=== PATIENT | female | born 1995 | race American Indian/Alaskan Native ===

== ENCOUNTER 2016-08-27 12:33 | Outpatient (CLI) | payer MEDICAID ==
[2016-08-27 13:01] LABS: Hematocrit 40.8 % (30.3-42.9); Hemoglobin 13.4 gm/dl (10.1-14.3); Mean Corpuscular HGB Conc 33 % (30-34); Mean Corpuscular Hemoglobin 29 pg (28-32); Mean Corpuscular Volume 87 fl (79-97); Platelet Count 242 K/mm3 (140-440); Red Blood Count 4.71 M/mm3 (3.65-5.03); Red Cell Distribution Width 12.5 % (13.2-15.2); White Blood Count 10.3 K/mm3 (4.5-11.0)
[2016-08-27 13:34] LABS: Alanine Aminotransferase 12 units/L (7-56); Albumin 4.5 g/dL (3.9-5); Albumin/Globulin Ratio 1.2 %; Alkaline Phosphatase 93 units/L (35-129); Anion Gap 23 mmol/L; Bilirubin,Total 0.4 mg/dL (0.1-1.2); Blood Urea Nitrogen 16 mg/dL (7-17); Calcium 9.8 mg/dL (8.4-10.2); Carbon Dioxide 21 mmol/L (22-30); Chloride 94.1 mmol/L (98-107); Glucose 355 mg/dL (65-100); Potassium 4.1 mmol/L (3.6-5.0); Sodium 134 mmol/L (137-145); Total Protein 8.2 g/dL (6.3-8.2)
[2016-08-27 13:44] LABS: Cholesterol 238 mg/dL (50-199); HDL Cholesterol 38 mg/dL (40-59); LDL Cholesterol,Direct 157 mg/dL (50-130); Triglycerides 219 mg/dL (2-149)
== END 2016-08-27 12:34 | disposition home or self-care (01) ==
LOC: LAB 12:33
PROVIDERS: ATTEND Specialist
DX: E11.65 Type 2 diabetes mellitus with hyperglycemia (principal)
CPT/HCPCS: 36415; 80053; 80061; 82043; 83036; 85027

== ENCOUNTER 2020-05-06 13:20 | Emergency (ER) | payer MEDICAID ==
--- NOTE | 2020-05-06 14:01 | Emergency Department Report ---
Blank Doc - Documentation Documentation: 24-year-old female 16 week with left sided chest pain, n/v, and left sided abdominal pain. denies any vaginal bleedig. This initial assessment/diagnostic orders/clinical plan/treatment(s) is/are subject to change based on patient's health status, clinical progression and re- assessment by fellow clinical providers in the ED. Further treatment and workup at subsequent clinical providers discretion. Patient/guardians urged not to elope from the ED as their condition may be serious if not clinically assessed and managed. Initial orders include: 1- Patient sent to [facility] for further evaluation and treatment 2- cardiac workup 3- US OB
[2020-05-06 15:03] LABS: Bilirubin,Urine NEG (Negative); Blood,Urine NEG (Negative); Color,Urine Yellow (Yellow); Protein,Urine <15 mg/dL mg/dL (Negative)
[2020-05-06 15:53] LABS: Basophils % (Auto) 0.4 % (0.0-1.8); Eosinophils % (Auto) 0.5 % (0.0-4.3); Hematocrit 36.8 % (30.3-42.9); Hemoglobin 12.3 gm/dl (10.1-14.3); Lymphocytes % (Auto) 18.7 % (13.4-35.0); Mean Corpuscular HGB Conc 33 % (30-34); Mean Corpuscular Volume 92 fl (79-97); Monocytes # (Auto) 0.5 K/mm3 (0.0-0.8); Platelet Count 230 K/mm3 (140-440); Red Cell Distribution Width 13.1 % (13.2-15.2)
[2020-05-06 16:02] LABS: INR 1.02 (0.87-1.13)
[2020-05-06 16:03] LABS: Partial Thromboplastin Time 24.1 Sec. (24.2-36.6)
[2020-05-06 16:07] LABS: Alanine Aminotransferase 41 units/L (7-56); Albumin 3.8 g/dL (3.9-5); Blood Urea Nitrogen 7 mg/dL (7-17); Calcium 9.5 mg/dL (8.4-10.2); Hemolysis Index 6
[2020-05-06 16:19] LABS: BUN/Creatinine Ratio 14
[2020-05-06] MEDS ORDERED: ACETAMINOPHEN 500 MG TAB PO ONE (16:47)
--- NOTE | 2020-05-06 16:51 | Emergency Department Report ---
ED Abdominal Pain HPI - General Chief Complaint: Abdominal Pain Stated Complaint: CHEST/LT SIDE PAIN/PREG 4MONTHS Time Seen by Provider: 05/06/20 14:01 Source: patient Mode of arrival: Ambulatory Limitations: No Limitations - History of Present Illness Initial Comments: The patient was evaluated in the emergency department for symptoms described in the history of present illness. He/she was evaluated in the context of the global COVID-19 pandemic, which necessitated consideration that the patient might be at risk for infection with the virus that causes COVID-19. Institutional protocols and algorithms that pertain to the evaluation of patients at risk for COVID-19 are in a state of rapid change based on information released by regulatory bodies including the CDC and federal and state organizations. These policies and algorithms were followed during the patient's care in the emergency department. Please note that these policies, procedures and recommendations changed on a rapid basis. 24-year-old -Trist[place] female who is 1, last menstrual period 01/31/2020 reports that she is approximately 16 weeks presents to the emergency room for suprapubic abdominal pain and left side abdominal pain. Patient admits to nausea vomiting and constipation. Patient has a past medical history of diabetes and is currently on insulin. She is followed by [facility] and as well as [place] last ultrasound 1 month ago. Patient denies any dysuria denies any vaginal bleeding or vaginal discharge. Patient reports that the pain is sharp persistent and she rated at 7-8 out of 10. Patient denies any complications at this time. Patient reports that she has been evaluated by her [facility]CONOMICS EXT[employer]ION WORKER for these complaints and they wanted to admit her at that time she was not able to stay in the hospital. MD Complaint: abdominal pain, flank pain Location: LLQ, suprapubic Severity scale (0 -10): 8 Quality: sharp Consistency: constant Improves With: nothing Worsens With: nothing - Related Data Previous Rx's Medication Instructions Recorded Last Taken Type Sulfamethoxazole/Trimethoprim 1 each PO BID #20 tablet 01/13/20 Unknown Rx [Bactrim DS TAB] cephALEXin [Keflex] 500 mg PO Q6HR #40 capsule 01/13/20 Unknown Rx Allergies Allergy/AdvReac Type Severity Reaction Status Date / Time No Known Allergies Allergy Unverified 01/13/20 10:24 ED Review of Systems ROS: Stated complaint: CHEST/LT SIDE PAIN/PREG 4MONTHS Other details as noted in HPI ED Past Medical Hx - Past Medical History Previous Medical History?: Yes Hx Diabetes: Yes - Surgical History Additional Surgical History: Left knee - Social History Smoking Status: Never Smoker Substance Use Type: None - Medications Home Medications: Home Medications Medication Instructions Recorded Confirmed Last Taken Type Sulfamethoxazole/Trimethoprim 1 each PO BID #20 tablet 01/13/20 Unknown Rx [Bactrim DS TAB] cephALEXin [Keflex] 500 mg PO Q6HR #40 capsule 01/13/20 Unknown Rx ED Physical Exam - General Limitations: No Limitations General appearance: alert, in no apparent distress, obese - Head Head exam: Present: atraumatic, normocephalic - Eye Eye exam: Present: normal appearance - ENT ENT exam: Present: mucous membranes moist - Neck Neck exam: Present: normal inspection, full ROM - Respiratory Respiratory exam: Present: normal lung sounds bilaterally. Absent: respiratory distress - Cardiovascular Cardiovascular Exam: Present: regular rate, normal rhythm. Absent: systolic murmur, diastolic murmur, rubs, gallop - GI/Abdominal GI/Abdominal exam: Present: soft, tenderness (Suprapubic and left lower quadrant). Absent: distended - Extremities Exam Extremities exam: Present: normal inspection, full ROM - Back Exam Back exam: Present: normal inspection - Neurological Exam Neurological exam: Present: alert, oriented X3, normal gait - Psychiatric Psychiatric exam: Present: normal affect, normal mood - Skin Skin exam: Present: warm, dry, intact, normal color. Absent: rash ED Course Vital Signs 05/06/20 05/06/20 14:00 18:01 Temperature 97.9 F Pulse Rate 102 H 84 Respiratory 20 16 Rate Blood Pressure 140/95 Blood Pressure 123/79 [Right] O2 Sat by Pulse 100 100 Oximetry - Consultations Consultation #1: 05/06/20 17:[address] Saint Nguyen she recommends the patient to call in the morning to make an appointment with her provider. ED Medical Decision Making - Lab Data Result diagrams: 05/06/20 15:25 05/06/20 15:25 - Radiology Data Radiology results: report reviewed [facility] [address] [place] [address] Ultrasound Report Signed Patient: NISH LAGUNA MR#: [id number] : 1995 Acct:[id number] Age/Sex: 24 / F ADM Date: 05/06/20 Loc: ED Attending Dr: Ordering Physician: AALIYAH MAHAN NP Date of Service: 05/06/20 Procedure(s): US OB >= 14 weeks Fetus Accession Number(s): [id number] cc: AALIYAH MAHAN NP ULTRASOUND OBSTETRIC INDICATION / CLINICAL INFORMATION: left pelvic pain. TECHNIQUE: Transabdominal. COMPARISON: None available. FINDINGS: There is a single intrauterine . Biparietal Diameter = 3.7 cm = 17.3 weeks.days Head Circumference = 14.2 cm = 17.3 weeks.days Abdominal Circumference = 11.8 cm = 17.4 weeks.days Femur Length = 2.1 cm = 16.3 weeks.days Average Ultrasound Age (AUA) = 17.2 weeks.days Heart Rate: 143 beats per minute. Estimated Weight in grams (if calculated): 179 Position: transverse. Cervix: closed. Length in cm (if measured): 3.9 Placenta: Circumvallate placenta with amniotic sheet, anterior, grade 0 and free of the os. Amniotic Fluid Volume: Subjectively normal Maternal Adnexa: No significant abnormality. IMPRESSION: 1. Single, living intrauterine with estimated sonographic age of 17.2 weeks.days 2. Circumvallate placenta noted with amniotic sheet present. Signer Name: Ravindra Morejon MD Signed: 05/06/2020 4:49 PM Workstation Name: [id number] Transcribed By: LENNIE Dictated By: Ravindra Morejon MD Electronically Authenticated By: Ravindra Morejon MD Signed Date/Time: 05/06/201648 DD/ 46 TD/TT: - Medical Decision Making 24-year-old -Trist[place] female who is 1, last menstrual period 01/31/2020 reports that she is approximately 16 weeks presents to the emergency room for suprapubic abdominal pain and left side abdominal pain. Patient admits to nausea vomiting and constipation. Patient has a past medical history of diabetes and is currently on insulin. She is followed by [facility] [place] [facility] and as well as [place] last ultrasound 1 month ago. Patient denies any dysuria denies any vaginal bleeding or vaginal discharge. Patient reports that the pain is sharp persistent and she rated at 7-8 out of 10. Patient denies any complications at this time. Patient reports that she has been evaluated by her [facility] [employer]CONOMICS EXTENSION WORKER for these complaints and they wanted to admit her at that time she was not able to stay in the hospital. Ultrasound shows a circumvallate placenta with amniotic sheet present. Urine has greater than 500 glucose patient has mild elevated blood pressure 140/95. Critical care attestation.: If time is entered above; I have spent that time in minutes in the direct care of this critically ill patient, excluding procedure time. ED Disposition Clinical Impression: Pelvic pain Disposition: DC-01 TO HOME OR SELFCARE Is pt being admited?: No Does the pt Need Aspirin: No Condition: Stable Instructions: Abdominal Pain (ED) Additional Instructions: Spoke to the provider at [facility] she recommends that you call in the morning to make an appointment to be seen by your provider at the office. You can take Tylenol for pain management. Increase your water intake. Referrals: PRIMARY CARE, [Primary Care Provider] - 3-5 Days [facility] [Provider Group] - 3-5 Days Forms: Work/School Release Form(ED)
--- NOTE | 2020-05-06 16:54 | Ultrasound Report ---
ULTRASOUND OBSTETRIC INDICATION / CLINICAL INFORMATION: left pelvic pain. TECHNIQUE: Transabdominal. COMPARISON: None available. FINDINGS: There is a single intrauterine . Biparietal Diameter = 3.7 cm = 17.3 weeks.days Head Circumference = 14.2 cm = 17.3 weeks.days Abdominal Circumference = 11.8 cm = 17.4 weeks.days Femur Length = 2.1 cm = 16.3 weeks.days Average Ultrasound Age (AUA) = 17.2 weeks.days Heart Rate: 143 beats per minute. Estimated Weight in grams (if calculated): 179 Position: transverse. Cervix: closed. Length in cm (if measured): 3.9 Placenta: Circumvallate placenta with amniotic sheet, anterior, grade 0 and free of the os. Amniotic Fluid Volume: Subjectively normal Maternal Adnexa: No significant abnormality. IMPRESSION: 1. Single, living intrauterine with estimated sonographic age of 17.2 weeks.days 2. Circumvallate placenta noted with amniotic sheet present. Signer Name: Ravindra Morejon MD Signed: 05/06/2020 4:49 PM Workstation Name: [id number]
[2020-05-06 18:01] VITALS: BP 123/79
== END 2020-05-06 18:14 | disposition home or self-care (01) ==
LOC: ED 13:20
DX: O26.892 Other specified pregnancy related conditions, second trimester (principal); R10.2 Pelvic and perineal pain; E11.9 Type 2 diabetes mellitus without complications; Z3A.16 16 weeks gestation of pregnancy; Z98.890 Other specified postprocedural states; Z79.899 Other long term (current) drug therapy
CPT/HCPCS: 36415; 76805; 80053; 81001; 84484; 84702; 85025; 85610; 85730

== ENCOUNTER 2020-08-31 12:14 | Outpatient (CLI) | payer MEDICAID ==
[2020-08-31] MEDS ORDERED: LACTATED RINGERS 1,000 ML IV ONE (13:49)
[2020-08-31 14:19] LABS: Bilirubin,Urine NEG (Negative); Blood,Urine NEG (Negative); Color,Urine Amber (Yellow); Mucus,Urine FEW /HPF
[2020-08-31 14:20] LABS: Bacteria,Urine 4+ /HPF (Negative)
[2020-08-31] MEDS ORDERED: ACETAMINOPHEN 500 MG TAB PO ONE (16:00)
[2020-08-31] MEDS ORDERED: TERBUTALINE 1 MG/1 ML INJ ONE (16:56)
[2020-08-31 17:00] VITALS: BP 137/88
[2020-08-31] MEDS ORDERED: TERBUTALINE 1 MG/1 ML INJ IVP ONE (17:01)
== END 2020-08-31 18:05 | disposition home or self-care (01) ==
LOC: TRG 12:14 → APU 12:15 → TRG 18:05
PROVIDERS: ATTEND Obstetrics & Gynecology
DX: O26.893 Other specified pregnancy related conditions, third trimester (principal); R10.30 Lower abdominal pain, unspecified; O47.03 False labor before 37 completed weeks of gestation, third trimester; Z3A.33 33 weeks gestation of pregnancy
CPT/HCPCS: 59025; 81001; 82962; 87086; 96361; 96365; 96375; J0690; J3105; J7120; 96360; 96372

== ENCOUNTER 2020-09-12 11:34 | Inpatient (IN) | payer MEDICAID ==
[2020-09-12] MEDS ORDERED: CALCIUM GLUCONATE 1000 MG/10 ML INJ IV NR (12:46)
[2020-09-12] MEDS ORDERED: DEXTROSE 50% IN WATER (25GM) 50 ML SYRINGE IV PRN (12:46)
[2020-09-12] MEDS ORDERED: BUTORPHANOL 2 MG/1 ML INJ IV PRN (12:46)
[2020-09-12] MEDS ORDERED: fentaNYL 100 MCG/2 ML INJ IV PRN (13:00)
[2020-09-12] MEDS ORDERED: OXYTOCIN DRIP 30 UNITS/500 ML BAG IV SCH (13:00)
[2020-09-12] MEDS ORDERED: LACTATED RINGERS 1,000 ML IV SCH (13:00)
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
[2020-09-12] MEDS ORDERED: ONDANSETRON 4 MG/2 ML INJ IV PRN (13:30)
[2020-09-12] MEDS ORDERED: MAGNESIUM SULFATE 4 GM/100 ML BAG IV SCH (13:30)
[2020-09-12] MEDS ORDERED: TERBUTALINE 1 MG/1 ML INJ SUB-Q PRN (13:30)
[2020-09-12] MEDS ORDERED: LIDOCAINE (2%) 20 MG/1 ML VIAL 20 ML MDV INFILTRATI SCH (13:30)
[2020-09-12] MEDS ORDERED: NALOXONE 0.4 MG/1 ML INJ IV PRN (13:30)
[2020-09-12] MEDS ORDERED: hydrALAZINE 20 MG/1 ML INJ IV PRN (13:30)
[2020-09-12] MEDS ORDERED: PROMETHAZINE 25 MG TAB PO PRN (13:30)
[2020-09-12] MEDS ORDERED: miSOPROStol 200 MCG TAB PR PRN (13:30)
[2020-09-12] MEDS: INSULIN REGULAR, HUMAN 100 UNITS/1 ML SUB-Q SCH (13:47)
[2020-09-12] MEDS: BETAMET ACET/BETAMET NA PH 6 MG/ML INJ 5 ML MDV IM SCH (13:48)
[2020-09-12] MEDS: LACTATED RINGERS 1,000 ML IV SCH ×2 (13:49→23:43)
[2020-09-12] MEDS ORDERED: MINERAL OIL 30 ML ORAL LIQD PO PRN (14:00)
[2020-09-12] MEDS ORDERED: DINOPROSTONE 10 MG VAG SUPP VG SCH (14:00)
[2020-09-12 14:19] LABS: Hematocrit 37.5 % (30.3-42.9); Hemoglobin 12.5 gm/dl (10.1-14.3); Mean Corpuscular HGB Conc 34 % (30-34); Mean Corpuscular Volume 91 fl (79-97); Red Blood Count 4.13 M/mm3 (3.65-5.03); Red Cell Distribution Width 14.4 % (13.2-15.2)
[2020-09-12 14:20] LABS: Platelet Count 142 K/mm3 (140-440)
[2020-09-12] MEDS: MAGNESIUM SULFATE 40GM/1000ML 40 GM/1,000 ML BAG IV SCH (14:39)
[2020-09-12 14:42] LABS: Alanine Aminotransferase 52 units/L (7-56); Albumin 3.7 g/dL (3.9-5); Blood Urea Nitrogen 8 mg/dL (7-17); Calcium 9.4 mg/dL (8.4-10.2); Hemolysis Index 3; Uric Acid 5.5 mg/dL (3.5-7.6)
[2020-09-12 14:50] LABS: BUN/Creatinine Ratio 13
--- NOTE | 2020-09-12 18:41 | Consultation ---
Consult Note - Parent Education Parent(s) demonstrated understanding of all the information:: Yes Additional Comment: Discussed the challenges and transition process for 35 week infants (including weight, respiratory status, feeding ability, POC glucoses, tempature regulation), criteria to transition to NBN, and criteria to transition into NICU care. Assessment and Plan - Assessment Gestation:: 35 Baby's gender: Male - Plan Plan: Agree with Mag & steroids Will attend delivery Please call NICU with questions
[2020-09-12] MEDS: BUTORPHANOL 2 MG/1 ML INJ IV PRN (21:26)
[2020-09-13] MEDS: BUTORPHANOL 2 MG/1 ML INJ IV PRN ×2 (00:33→02:58)
[2020-09-13] MEDS: miSOPROStol 25 MCG TAB PO SCH ×5 (01:38→11:59)
[2020-09-13] MEDS: LACTATED RINGERS 1,000 ML IV SCH ×3 (04:06→23:11)
[2020-09-13] MEDS ORDERED: NALOXONE 2 MG/2 ML INJ IV PRN (04:40)
[2020-09-13] MEDS ORDERED: ePHEDrine SULFATE 50 MG/1 ML INJ IV PRN (04:40)
--- NOTE | 2020-09-13 04:40 | Anesthesia Consultation ---
Anesthesia Consult and Med Hx Date of service: 09/13/20 - Airway Anesthetic Teeth Evaluation: Good ROM Head & Neck: Adequate Mental/Hyoid Distance: Adequate Mallampati Class: Class II Intubation Access Assessment: Probably Good - Pulmonary Exam CTA: Yes - Cardiac Exam Cardiac Exam: RRR - Pre-Operative Health Status ASA Pre-Surgery Classification: ASA3 Proposed Anesthetic Plan: Epidural - Pulmonary Hx Asthma: No - Cardiovascular System Hx Hypertension: Yes - Central Nervous System Hx Seizures: No Hx Psychiatric Problems: No - Endocrine Hx Renal Disease: No Hx Hypothyroidism: No Hx Hyperthyroidism: No - Hematic Hx Anemia: No Hx Sickle Cell Disease: No - Other Systems Hx Alcohol Use: No Hx Obesity: Yes
--- NOTE | 2020-09-13 04:44 | Progress Note ---
Labor Epidural - Labor Epidural Start Time: 04:15 Stop Time: 04:35 Performed by:: FABRICIO WHITE Procedure: Patient is requesting epidural for labor pain. H&P, and labs reviewed. Procedure explained, questions answered, consent obtained. Patient in sitting position with blood pressure cuff and pulse ox on and working. Timeout performed immediately before start of procedure. Sterile chlorahexadine 0.5% prep/drape. 5 mL 1% lidocaine skin wheal at L[3]-L[4]. 18-gauge Tuohy epidural needle advanced to [id number] with saline at 9 cm. Epidural catheter advanced to 15 cm, negative aspiration for blood and csf, negative test dose 3 ml 1.5% lidocaine with epinephrine. Epidural dexmedetomidine [30] mcg administered. Sterile steri-strips and tegaderm applied, followed by tape reinforcement. Patient tolerated procedure well. Luis Miguel HUGHES
[2020-09-13] MEDS: ePHEDrine SULFATE 50 MG/1 ML INJ IV PRN ×2 (05:12→05:30)
[2020-09-13] MEDS: fentaNYL-BUPIV 2 MCG/ML-0.125% 200 MCG/100 ML BAG EPIDURAL SCH ×2 (05:30→13:16)
[2020-09-13] MEDS: INSULIN REGULAR, HUMAN 100 UNITS/1 ML SUB-Q SCH ×2 (06:37→12:00)
--- NOTE | 2020-09-13 07:41 | Progress Note ---
Assessment and Plan A: 25 yo at 35w4d EGA Preeclampsia with severe features IDDM, unknown level of control GBS positive, membranes ruptured x9 hours Obesity Bipolar disorder, not medicated LGA fetus Resolved amniotic band P: Continue buccal Cytotec q2hr Ampicillin prophylaxis 2nd dose of Betamethasone today BG QACHS and 2 hr PP, sliding scale insulin Continue Mag sulfate for seizure prophylaxis Antihypertensive therapy as indicated Dr. Sweeney aware of patient Subjective - Subjective Date of service: 09/13/20 Principal diagnosis: IOL for preeclampsia with severe features, IDDM, IUP at 35w4d Interval history: HD2 of IOL for preeclampsia with severe features. S/p Cervidil x7 hours, removed after spontaneous rupture of membranes (clear) overnight, and one dose of rescue Hydralazine. Now on buccal Cytotec q2hr and Mag sulfate drip. She is resting comfortably now with epidural anesthesia. Patient reports: loss of fluid, no new complaints Objective - Vital Signs Vital Signs: Vital Signs - 12hr 09/12/20 09/12/20 09/12/20 19:50 20:04 20:19 Temperature Pulse Rate 92 H 90 103 H Respiratory Rate Blood Pressure 140/76 126/63 130/65 Blood Pressure [Left] O2 Sat by Pulse Oximetry 09/12/20 09/12/20 09/12/20 20:34 20:49 21:19 Temperature Pulse Rate 203 H 97 H 127 H Respiratory Rate Blood Pressure 97/49 147/67 160/102 Blood Pressure [Left] O2 Sat by Pulse Oximetry 09/12/20 09/12/20 09/12/20 21:26 21:34 22:34 Temperature Pulse Rate 100 H 87 Respiratory 20 Rate Blood Pressure 129/69 146/73 Blood Pressure [Left] O2 Sat by Pulse Oximetry 09/12/20 09/12/20 09/12/20 23:04 23:19 23:34 Temperature Pulse Rate 90 89 100 H Respiratory Rate Blood Pressure 133/63 134/71 119/61 Blood Pressure [Left] O2 Sat by Pulse Oximetry 09/12/20 09/13/20 09/13/20 23:49 00:05 00:19 Temperature Pulse Rate 93 H 114 H 90 Respiratory Rate Blood Pressure 127/74 132/87 141/75 Blood Pressure [Left] O2 Sat by Pulse Oximetry 09/13/20 09/13/20 09/13/20 00:34 00:35 00:49 Temperature 97.9 F Pulse Rate 166 H 92 H 96 H Respiratory 20 Rate Blood Pressure 162/72 132/63 Blood Pressure 162/72 [Left] O2 Sat by Pulse Oximetry 09/13/20 09/13/20 09/13/20 01:04 01:33 01:48 Temperature Pulse Rate 116 H 96 H 96 H Respiratory Rate Blood Pressure 130/70 137/70 127/65 Blood Pressure [Left] O2 Sat by Pulse Oximetry 09/13/20 09/13/20 09/13/20 02:04 02:19 02:36 Temperature Pulse Rate 96 H 95 H 107 H Respiratory Rate Blood Pressure 130/63 124/60 124/70 Blood Pressure [Left] O2 Sat by Pulse Oximetry 09/13/20 09/13/20 09/13/20 02:49 02:58 03:05 Temperature Pulse Rate 96 H 106 H Respiratory 20 Rate Blood Pressure 123/75 129/75 Blood Pressure [Left] O2 Sat by Pulse Oximetry 09/13/20 09/13/20 09/13/20 03:19 03:34 03:49 Temperature Pulse Rate 96 H 96 H 98 H Respiratory Rate Blood Pressure 131/60 125/58 131/62 Blood Pressure [Left] O2 Sat by Pulse Oximetry 09/13/20 09/13/20 09/13/20 04:04 04:19 04:22 Temperature Pulse Rate 105 H 110 H 102 H Respiratory Rate Blood Pressure 118/84 140/75 151/84 Blood Pressure [Left] O2 Sat by Pulse Oximetry 09/13/20 09/13/20 09/13/20 04:25 04:27 04:29 Temperature Pulse Rate 97 H 95 H 97 H Respiratory Rate Blood Pressure 141/73 143/72 143/73 Blood Pressure [Left] O2 Sat by Pulse Oximetry 09/13/20 09/13/20 09/13/20 04:31 04:33 04:35 Temperature Pulse Rate 101 H 88 88 Respiratory Rate Blood Pressure 127/70 120/64 120/56 Blood Pressure [Left] O2 Sat by Pulse 79 L Oximetry 09/13/20 09/13/20 09/13/20 04:36 04:37 04:40 Temperature Pulse Rate 120 H 87 87 Respiratory Rate Blood Pressure 121/59 Blood Pressure [Left] O2 Sat by Pulse 78 L 98 Oximetry 09/13/20 09/13/20 09/13/20 04:43 04:44 04:45 Temperature Pulse Rate 81 85 86 Respiratory Rate Blood Pressure 108/59 101/57 Blood Pressure [Left] O2 Sat by Pulse 93 97 Oximetry 09/13/20 09/13/20 09/13/20 04:46 04:48 04:50 Temperature Pulse Rate 83 82 107 H Respiratory Rate Blood Pressure 102/56 102/55 Blood Pressure [Left] O2 Sat by Pulse 97 Oximetry 09/13/20 09/13/20 09/13/20 04:51 04:53 04:55 Temperature Pulse Rate 107 H 94 H 90 Respiratory Rate Blood Pressure 99/51 73/43 92/55 Blood Pressure [Left] O2 Sat by Pulse 98 Oximetry 09/13/20 09/13/20 09/13/20 04:56 04:58 05:00 Temperature Pulse Rate 88 86 85 Respiratory Rate Blood Pressure 91/54 89/52 87/50 Blood Pressure [Left] O2 Sat by Pulse 96 Oximetry 09/13/20 09/13/20 09/13/20 05:02 05:04 05:05 Temperature Pulse Rate 86 82 84 Respiratory Rate Blood Pressure 86/47 86/48 Blood Pressure [Left] O2 Sat by Pulse 97 Oximetry 09/13/20 09/13/20 09/13/20 05:06 05:08 05:10 Temperature Pulse Rate 83 83 83 Respiratory Rate Blood Pressure 81/48 81/48 87/51 Blood Pressure [Left] O2 Sat by Pulse 98 Oximetry 09/13/20 09/13/20 09/13/20 05:12 05:15 05:16 Temperature Pulse Rate 98 H 94 H 92 H Respiratory Rate Blood Pressure 89/54 117/59 114/58 Blood Pressure [Left] O2 Sat by Pulse 99 Oximetry 09/13/20 09/13/20 09/13/20 05:19 05:20 05:21 Temperature Pulse Rate 97 H 96 H 94 H Respiratory Rate Blood Pressure 99/53 91/49 Blood Pressure [Left] O2 Sat by Pulse 96 Oximetry 09/13/20 09/13/20 09/13/20 05:22 05:25 05:27 Temperature Pulse Rate 93 H 88 87 Respiratory Rate Blood Pressure 96/52 87/49 102/55 Blood Pressure [Left] O2 Sat by Pulse 97 Oximetry 09/13/20 09/13/2009/13/21 05:28 05:30 05:32 Temperature Pulse Rate 90 96 H 93 H Respiratory Rate Blood Pressure 95/54 98/55 99/57 Blood Pressure [Left] O2 Sat by Pulse 98 Oximetry 09/13/20 09/13/20 09/13/20 05:34 05:35 05:36 Temperature Pulse Rate 96 H 98 H 93 H Respiratory Rate Blood Pressure 104/57 105/57 Blood Pressure [Left] O2 Sat by Pulse 98 Oximetry 09/13/20 09/13/20 09/13/20 05:39 05:40 05:42 Temperature Pulse Rate 100 H 99 H 97 H Respiratory Rate Blood Pressure 94/55 94/51 97/53 Blood Pressure [Left] O2 Sat by Pulse 97 Oximetry 09/13/20 09/13/20 09/13/20 05:44 05:45 05:46 Temperature Pulse Rate 98 H 93 H 95 H Respiratory Rate Blood Pressure 91/55 100/57 Blood Pressure [Left] O2 Sat by Pulse 99 Oximetry 09/13/20 09/13/20 09/13/20 05:47 05:48 05:50 Temperature 97.7 F Pulse Rate 99 H 98 H 93 H Respiratory 20 Rate Blood Pressure 94/55 Blood Pressure 100/57 [Left] O2 Sat by Pulse 98 98 Oximetry 09/13/20 09/13/20 09/13/20 05:55 06:00 06:04 Temperature Pulse Rate 96 H 101 H 96 H Respiratory Rate Blood Pressure 101/51 Blood Pressure [Left] O2 Sat by Pulse 97 96 Oximetry 09/13/20 09/13/20 09/13/20 06:05 06:10 06:15 Temperature Pulse Rate 99 H 100 H 98 H Respiratory Rate Blood Pressure Blood Pressure [Left] O2 Sat by Pulse 97 99 99 Oximetry 09/13/20 09/13/20 09/13/20 06:20 06:25 06:30 Temperature Pulse Rate 98 H 95 H 94 H Respiratory Rate Blood Pressure 114/59 Blood Pressure [Left] O2 Sat by Pulse 98 99 98 Oximetry 09/13/20 09/13/20 09/13/20 06:34 06:35 06:40 Temperature Pulse Rate 90 89 84 Respiratory Rate Blood Pressure 101/58 Blood Pressure [Left] O2 Sat by Pulse 99 97 Oximetry 09/13/20 09/13/20 09/13/20 06:45 06:50 06:55 Temperature Pulse Rate 89 95 H 96 H Respiratory Rate Blood Pressure 92/54 Blood Pressure [Left] O2 Sat by Pulse 99 97 96 Oximetry 09/13/20 09/13/20 09/13/20 07:00 07:05 07:10 Temperature Pulse Rate 89 94 H 95 H Respiratory Rate Blood Pressure Blood Pressure [Left] O2 Sat by Pulse 98 99 98 Oximetry 09/13/20 09/13/20 09/13/20 07:15 07:20 07:21 Temperature Pulse Rate 91 H 89 89 Respiratory Rate Blood Pressure 110/53 Blood Pressure [Left] O2 Sat by Pulse 98 98 Oximetry 09/13/20 09/13/20 09/13/20 07:25 07:30 07:35 Temperature Pulse Rate 86 94 H 106 H Respiratory Rate Blood Pressure Blood Pressure [Left] O2 Sat by Pulse 98 98 99 Oximetry - Exam FHR: category 1 Uterine Contraction Pattern: Irregular - Labs Labs: Abnormal Labs 09/12/20 09/12/20 09/12/20 14:08 14:08 17:53 Sodium 135 L Carbon Dioxide 21 L POC Glucose Hemoglobin A1c 6.7 H Magnesium 4.00 H AST 42 H Alkaline Phosphatase 136 H Albumin 3.7 L 09/13/20 09/13/20 09/13/20 00:21 01:21 06:11 Sodium Carbon Dioxide POC Glucose 141 H 183 H Hemoglobin A1c Magnesium 5.40 H AST Alkaline Phosphatase Albumin Laboratory Results - last 24 hr 09/12/20 09/12/20 09/12/20 13:37 14:08 14:08 WBC 6.9 RBC 4.13 Hgb 12.5 Hct 37.5 MCV 91 MCH 30 MCHC 34 RDW 14.4 Plt Count 142 Sodium 135 L Potassium 4.2 Chloride 100.9 Carbon Dioxide 21 L Anion Gap 17 BUN 8 Creatinine 0.6 Estimated GFR > 60 BUN/Creatinine Ratio 13 Glucose 91 POC Glucose 86 Hemoglobin A1c Uric Acid 5.5 Calcium 9.4 Magnesium Total Bilirubin 0.60 AST 42 H ALT 52 Alkaline Phosphatase 136 H Total Protein 6.9 Albumin 3.7 L Albumin/Globulin Ratio 1.2 Syphilis IgG Antibody Blood Type Antibody Screen 09/12/20 09/12/20 09/12/20 14:08 14:08 14:08 WBC RBC Hgb Hct MCV MCH MCHC RDW Plt Count Sodium Potassium Chloride Carbon Dioxide Anion Gap BUN Creatinine Estimated GFR BUN/Creatinine Ratio Glucose POC Glucose Hemoglobin A1c 6.7 H Uric Acid Calcium Magnesium Total Bilirubin AST ALT Alkaline Phosphatase Total Protein Albumin Albumin/Globulin Ratio Syphilis IgG Antibody Nonreactive Blood Type AB POSITIVE Antibody Screen Positive 09/12/20 09/13/20 09/13/20 17:53 00:21 01:21 WBC RBC Hgb Hct MCV MCH MCHC RDW Plt Count Sodium Potassium Chloride Carbon Dioxide Anion Gap BUN Creatinine Estimated GFR BUN/Creatinine Ratio Glucose POC Glucose 141 H Hemoglobin A1c Uric Acid Calcium Magnesium 4.00 H 5.40 H Total Bilirubin AST ALT Alkaline Phosphatase Total Protein Albumin Albumin/Globulin Ratio Syphilis IgG Antibody Blood Type Antibody Screen 09/13/20 06:11 WBC RBC Hgb Hct MCV MCH MCHC RDW Plt Count Sodium Potassium Chloride Carbon Dioxide Anion Gap BUN Creatinine Estimated GFR BUN/Creatinine Ratio Glucose POC Glucose 183 H Hemoglobin A1c Uric Acid Calcium Magnesium Total Bilirubin AST ALT Alkaline Phosphatase Total Protein Albumin Albumin/Globulin Ratio Syphilis IgG Antibody Blood Type Antibody Screen
[2020-09-13] MEDS ORDERED: AMPICILLIN/NS 2 GM/100 ML 2 GM/100 ML BAG IV ONE ×2 (08:00→12:00)
[2020-09-13] MEDS: BETAMET ACET/BETAMET NA PH 6 MG/ML INJ 5 ML MDV IM SCH (10:22)
[2020-09-13] MEDS: MAGNESIUM SULFATE 40GM/1000ML 40 GM/1,000 ML BAG IV SCH (11:28)
[2020-09-13] MEDS: AMPICILLIN/NS 1 GM/50 ML 1 GM/50 ML BAG IV SCH ×3 (11:59→19:32)
[2020-09-13] MEDS ORDERED: OXYTOCIN DRIP 30,000 MILLIUNITS/500 ML BAG IV ONE (13:13)
--- NOTE | 2020-09-13 13:15 | Event Note ---
Date: 09/13/20 Subtle late decelerations noted, resolved with position change. Minimal FHR variability, will decrease mag sulfate infusion to 1mg/hr. SVE /-2. Will discontinue Cytotec, initiate Pitocin titration.
[2020-09-13] MEDS ORDERED: DEXTROSE 50% IN WATER (25GM) 50 ML SYRINGE IV PRN (15:00)
[2020-09-13] MEDS: INSULIN LISPRO 100 UNIT/ML SUB-Q SCH ×2 (15:54→19:47)
--- NOTE | 2020-09-13 19:00 | Event Note ---
Date: 09/13/20 FHR difficult to trace. IUPC and FSE placed, pt tolerated well. SVE /-2. Pitocin 2x2. Continue sliding scale insulin regimen.
--- NOTE | 2020-09-13 19:28 | Event Note ---
Date: 09/13/20 EFM shows minimal variability and recurrent late decelerations. Repositioned to exaggerated left lateral with peanut ball. Explained likely need for delivery if lack of labor progression after one hour.
[2020-09-13] MEDS ORDERED: BICITRA ORAL LIQD 30ML PO ONE (19:48)
[2020-09-13] MEDS ORDERED: FAMOTIDINE 20 MG/2 ML INJ IV ONE (19:48)
[2020-09-13] MEDS ORDERED: METOCLOPRAMIDE 10 MG/2 ML INJ IV ONE (19:48)
[2020-09-13] MEDS ORDERED: LACTATED RINGERS 1,000 ML IV SCH (20:00)
--- NOTE | 2020-09-13 20:12 | Anesthesia Day of Surgery ---
Anesthesia Day of Surgery - Day of Surgery Patient Examined: Yes Patient H&P Reviewed: Yes Patient is NPO: Yes Beta Blockers: No Cardiac Clearance: No Pulmonary Clearance: No Matthew's Test: N/A
[2020-09-13] MEDS ORDERED: PROMETHAZINE 25 MG TAB PO PRN (20:31)
[2020-09-13] MEDS ORDERED: ceFAZolin/STERILE WATER 2 GM/20 ML SYRINGE IV ONE (20:35)
[2020-09-13] MEDS ORDERED: NALOXONE 0.4 MG/1 ML INJ IV PRN (20:36)
[2020-09-13] MEDS ORDERED: MORPHINE 4 MG/1 ML INJ IV PRN (20:36)
[2020-09-13] MEDS ORDERED: LANOLIN/ZINC/DIMETHICONE (LANSINOH) 7 GM TP PRN (20:36)
[2020-09-13] MEDS ORDERED: IBUPROFEN 600 MG TAB PO PRN (20:36)
[2020-09-13] MEDS ORDERED: WITCH HAZEL/ GLYCERIN PAD TP PRN (20:36)
[2020-09-13] MEDS ORDERED: KETOROLAC 30 MG/1 ML INJ IV PRN (20:36)
[2020-09-13] MEDS ORDERED: ONDANSETRON 4 MG/2 ML INJ ONE (20:42)
[2020-09-13] MEDS ORDERED: LIDOCAINE 2%/EPINEPHRINE 1:200,000 VIAL (20 ML) INFILTRATI ONE (20:42)
[2020-09-13] MEDS ORDERED: MORPHINE PF 10MG/10 ML AMPULE ONE (20:42)
[2020-09-13] MEDS ORDERED: OXYTOCIN DRIP 30 UNITS/500 ML BAG IV SCH (21:00)
[2020-09-13] MEDS ORDERED: OXYTOCIN 10 UNIT/1 ML INJ ONE (21:14)
[2020-09-13] MEDS ORDERED: WATER FOR IRRIG STERILE 1,500 ML BOTTLE IR ONE (21:25)
[2020-09-13] MEDS ORDERED: SODIUM CHLORIDE 0.9% IRR 1,500 ML BOTTLE IR ONE (21:25)
--- NOTE | 2020-09-13 21:25 | Procedure Note ---
OB Delivery Note - Delivery Date of Delivery: 09/13/20 Surgeon: GAYLE MARQUES Estimated blood loss: other (600 mL) - Section Preop diagnosis: arrest of dilation, nonreassuring FHR tracing Postop diagnosis: same section procedure: section, primary low transverse Disposition: PACU Complications: none - Infant A at 1 minute: 1 at 5 minutes: 4 Gender: Male (10-minute of 8 weeks 7 pounds 12 ounces)
--- NOTE | 2020-09-13 21:28 | Operative Report ---
Operative Report Operative Report: Date of surgery: September 13, 2020 Preoperative diagnosis: at 35+5 weeks; preeclampsia; insulin-dependent diabetes; arrest of dilatation; nonreassuring heart rate tracing Postoperative diagnosis: Same as above Procedure: Primary low transverse delivery Surgeon: Lori Alexander M.D. Anesthesia: Regional Estimated blood loss: 600 mL IV fluids: 1000 mL Urine output: 100 mL Findings: Liveborn male with Apgars of 1 4 and 8 weight 7 pounds 12 ounces Indications: 25-year-old G1, P0 at 35+5 weeks who was admitted for induction of labor secondary to severe preeclampsia and insulin-dependent diabetes. The patient's intrapartum course was complicated by arrest of dilatation at 7 cm and nonreassuring heart rate tracing. Procedure: The patient was taken to the operating room and given regional anesthesia without complication. She was prepped and draped in a normal sterile fashion. A Pfannenstiel skin incision was made down to layer the fascia which was nicked in the midline extended laterally with the Bovie cautery. The superior aspect of the rectus fascia was grasped with Antione clamps x2 and the rectus muscles off sharply. This was done in inferior fashion as well. The rectus muscle midline and peritoneum entered bluntly. An Tl retractor was then inserted. A bladder blade was placed. The vesicouterine peritoneum was then entered sharply with Metzenbaum scissors. A bladder flap was created digitally. A low transverse uterine incision was then made and extended digitally. There was clear fluid upon entry into the uterine cavity. The head was delivered through the incision with fundal pressure. The cord was clamped and cut x2 and was passed off to pediatrics. The placenta was then manually extracted. The uterus was then exteriorized and cleared of clots and debris. T he uterine incision was then closed in a running locked fashion with 0 Vicryl additional imbricating stitch was applied for 2 layer closure. The posterior cul-de-sac was then copiously irrigated. The uterus was replaced back into the abdomen and pelvis were the gutters were then irrigated. The Tl retractor was then removed. The peritoneum was then reapproximated with 3-0 Vicryl incorporating the rectus muscle. The fascia was then closed with 0 Vicryl in a running fashion. The skin was then reapproximated with 3-0 Monocryl on a Rex needle subcuticular fashion. Steri-Strips to place across the incision and a Crede procedures performed at the end of the surgery. A pressure dressing was applied to the incision. The surgery productive of a liveborn male infant with Apgars of 1 4 and 8 weight 7 pounds 12 ounces. The patient was taken to the recovery room in stable condition. All sponge laps and needle counts correct x2.
[2020-09-14] MEDS: diphenhydrAMINE 50 MG/ML VIAL IV PRN ×2 (00:15→02:44)
[2020-09-14] MEDS ORDERED: CALAMINE TP PRN (02:41)
[2020-09-14] MEDS ORDERED: ZINC OXIDE TP PRN (02:41)
[2020-09-14] MEDS: INSULIN LISPRO 100 UNIT/ML SUB-Q SCH ×5 (06:42→22:12)
[2020-09-14 07:28] LABS: Hemoglobin 9.6 gm/dl (10.1-14.3)
--- NOTE | 2020-09-14 07:28 | Progress Note ---
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 Medical history complicated by uncontrolled DM insulin requiring. Patient is unsure of insulin dosage. Will attempt sliding scale management. Receiving magnesium therapy. Patient reports: appetite normal Objective - Vital Signs Latest vital signs: Vital Signs Temp Pulse Resp BP BP Pulse Ox 09/14/20 07:18 85 97 09/14/20 07:13 83 98 09/14/20 07:09 85 214/119 09/14/20 07:08 85 97 09/14/20 07:03 94 H 99 09/14/20 06:58 94 H 100 09/14/20 06:55 46 L 77 L 09/14/20 06:53 87 97 09/14/20 06:48 85 99 09/14/20 06:44 113 H 74 L 09/14/20 06:43 107 H 97 09/14/20 06:38 92 H 97 09/14/20 06:33 85 97 09/14/20 06:28 91 H 98 09/14/20 06:23 100 H 97 09/14/20 06:18 85 99 09/14/20 06:13 97 H 97 09/14/20 06:09 81 162/91 09/14/20 06:08 84 96 09/14/20 06:03 83 96 09/14/20 06:01 86 93 09/14/20 05:58 80 95 09/14/20 05:56 82 94 09/14/20 05:53 83 96 09/14/20 05:48 83 98 09/14/20 05:47 92 H 93 09/14/20 05:43 88 98 09/14/20 05:39 88 180/101 09/14/20 05:38 86 99 09/14/20 05:33 90 99 09/14/20 05:28 99 H 98 09/14/20 05:24 88 144/72 09/14/20 05:23 91 H 99 09/14/20 05:18 81 98 03/12/21 05:13 82 98 09/14/20 05:09 96 H 195/82 92 09/14/20 05:08 104 H 95 09/14/20 05:03 86 97 09/14/20 04:58 86 98 09/14/20 04:53 96 H 99 09/14/20 04:48 100 H 95 09/14/20 04:47 103 H 93 09/14/20 04:43 85 97 09/14/20 04:39 82 164/90 09/14/20 04:38 84 98 09/14/20 04:33 94 H 98 09/14/20 04:30 98.2 F 94 H 16 90 09/14/20 04:28 91 H 159/84 98 09/14/20 04:23 82 97 09/14/20 04:18 86 96 09/14/20 04:16 96 H 93 09/14/20 04:13 88 96 09/14/20 04:09 85 166/89 09/14/20 04:08 88 97 09/14/20 04:03 89 97 09/14/20 04:01 86 94 09/14/20 03:58 84 95 09/14/20 03:53 83 97 09/14/20 03:48 84 97 09/14/20 03:43 83 96 09/14/20 03:39 80 153/88 09/14/20 03:38 79 96 09/14/20 03:33 82 98 09/14/20 03:28 99 H 98 09/14/20 03:23 81 94 09/14/20 03:18 79 96 09/14/20 03:13 84 97 09/14/20 03:09 80 144/87 09/14/20 03:08 88 96 09/14/20 03:04 82 94 09/14/20 03:03 81 95 09/14/20 02:58 84 97 09/14/20 02:53 82 98 09/14/20 02:48 85 95 09/14/20 02:43 91 H 96 09/14/20 02:41 86 151/87 09/14/20 02:39 84 180/98 09/14/20 02:38 83 97 09/14/20 02:33 85 96 09/14/20 02:28 101 H 98 09/14/20 02:23 93 H 96 09/14/20 02:18 82 97 09/14/20 02:13 86 97 09/14/20 02:09 99 H 149/79 09/14/20 02:08 83 97 09/14/20 02:03 82 96 09/14/20 01:58 84 97 09/14/20 01:53 82 98 09/14/20 01:48 103 H 96 09/14/20 01:43 105 H 99 09/14/20 01:41 85 94 09/14/20 01:39 85 138/82 09/14/20 01:38 84 96 09/14/20 01:33 82 99 09/14/20 01:28 92 H 137/80 98 09/14/20 01:23 101 H 99 09/14/20 01:18 81 96 09/14/20 01:13 84 96 09/14/20 01:09 81 180/89 09/14/20 01:08 89 97 09/14/20 01:03 84 96 09/14/20 00:58 79 97 09/14/20 00:53 102 H 100 09/14/20 00:48 90 97 09/14/20 00:43 102 H 96 09/14/20 00:39 86 137/82 09/14/20 00:38 95 H 99 09/14/20 00:33 77 98 09/14/20 00:28 89 98 09/14/20 00:23 84 100 09/14/20 00:18 90 98 09/14/20 00:13 93 H 98 09/14/20 00:09 79 157/78 09/14/20 00:08 88 99 09/14/20 00:03 89 100 09/14/20 00:01 97.6 F 15 99 09/13/20 23:58 96 H 99 09/13/20 23:53 89 97 09/13/20 23:48 91 H 98 09/13/20 23:43 78 98 09/13/20 23:39 75 135/82 09/13/20 23:38 77 99 09/13/20 23:33 78 98 09/13/20 23:28 79 99 09/13/20 23:23 76 99 09/13/20 23:18 99 H 99 09/13/20 23:13 78 100 09/13/20 23:09 78 140/67 09/13/20 23:08 80 99 09/13/20 23:03 86 99 09/13/20 22:58 89 98 09/13/20 22:35 97.6 F 80 13 131/77 99 09/13/20 22:20 76 12 131/72 99 09/13/20 22:05 82 15 124/78 99 09/13/20 21:50 80 14 127/69 99 09/13/20 21:45 84 16 134/76 100 09/13/20 21:40 81 13 133/72 99 09/13/20 21:35 97.7 F 82 14 143/79 143/79 99 09/13/20 20:10 89 99 09/13/20 20:05 91 H 99 09/13/20 20:00 95 H 99 09/13/20 19:55 94 H 99 09/13/20 19:50 95 H 99 09/13/20 19:45 95 H 100 09/13/20 19:40 90 99 09/13/20 19:35 87 100 09/13/20 19:30 98.2 F 90 16 99 09/13/20 19:25 101 H 98 09/13/20 19:20 92 H 154/78 98 09/13/20 19:15 84 100 09/13/20 19:10 85 99 09/13/20 19:06 86 159/79 09/13/20 19:05 88 100 09/13/20 19:00 92 H 99 09/13/20 18:55 90 100 09/13/20 18:50 96 H 170/83 100 09/13/20 18:45 102 H 99 09/13/20 18:40 97 H 100 09/13/20 18:36 98 H 157/85 09/13/20 18:35 107 H 100 09/13/20 18:30 91 H 100 09/13/20 18:25 97 H 99 09/13/20 18:20 90 133/67 99 09/13/20 18:15 99 H 99 09/13/20 18:10 93 H 99 09/13/20 18:05 90 116/62 98 09/13/20 18:00 90 100 09/13/20 17:55 92 H 99 09/13/20 17:50 92 H 123/61 99 09/13/20 17:45 91 H 99 09/13/20 17:40 87 100 09/13/20 17:36 107 H 138/77 09/13/20 17:35 120 H 98 09/13/20 17:30 95 H 98 09/13/20 17:25 95 H 99 09/13/20 17:20 109 H 123/81 99 09/13/20 17:15 111 H 99 09/13/20 17:10 98.9 F 103 H 18 137/79 100 09/13/20 17:06 103 H 137/79 09/13/20 17:05 96 H 100 09/13/20 17:00 92 H 100 09/13/20 16:55 98 H 100 09/13/20 16:50 96 H 148/77 100 09/13/20 16:45 93 H 100 09/13/20 16:41 96 H 147/77 09/13/20 16:40 97 H 100 09/13/20 16:35 99 H 100 09/13/20 16:30 95 H 100 09/13/20 16:25 92 H 100 09/13/20 16:20 104 H 100 09/13/20 16:15 102 H 99 09/13/20 16:10 91 H 100 09/13/20 16:05 99 H 100 09/13/20 16:00 95 H 100 09/13/20 15:55 93 H 100 09/13/20 15:51 93 H 146/80 09/13/20 15:50 101 H 100 09/13/20 15:45 102 H 100 09/13/20 15:40 99 H 100 09/13/20 15:35 94 H 145/82 100 09/13/20 15:30 109 H 100 09/13/20 15:25 104 H 99 09/13/20 15:21 98 H 135/74 09/13/20 15:20 95 H 98 09/13/20 15:15 90 98 09/13/20 15:10 90 98 09/13/20 15:05 88 128/69 98 09/13/20 15:00 90 99 09/13/20 14:55 91 H 100 09/13/20 14:51 94 H 145/83 09/13/20 14:50 99 H 99 09/13/20 14:45 93 H 99 09/13/20 14:40 92 H 99 09/13/20 14:35 89 148/73 99 09/13/20 14:30 90 99 09/13/20 14:25 93 H 99 09/13/20 14:20 99 H 99 09/13/20 14:15 92 H 99 09/13/20 14:10 108 H 98 09/13/20 14:05 90 134/71 98 09/13/20 14:00 100 H 98 09/13/20 13:55 99 H 99 09/13/20 13:51 90 144/79 09/13/20 13:50 95 H 97 09/13/20 13:45 87 98 09/13/20 13:40 88 98 09/13/20 13:36 103 H 147/84 09/13/20 13:35 99 H 99 09/13/20 13:30 92 H 100 09/13/20 13:25 96 H 99 09/13/20 13:21 98 H 131/83 09/13/20 13:20 98 H 99 09/13/20 13:15 93 H 99 09/13/20 13:10 101 H 99 09/13/20 13:07 96 H 121/76 09/13/20 13:05 97 H 99 09/13/20 13:00 92 H 98 09/13/20 12:55 102 H 98 09/13/20 12:52 96 H 150/91 09/13/20 12:50 105 H 98 09/13/20 12:45 97 H 99 09/13/20 12:40 107 H 99 09/13/20 12:36 101 H 142/98 09/13/20 12:35 101 H 98 09/13/20 12:30 99 H 99 09/13/20 12:25 101 H 100 09/13/20 12:20 109 H 99 09/13/20 12:15 107 H 100 09/13/20 12:12 88 120/65 09/13/20 12:10 92 H 99 09/13/20 12:06 90 117/66 09/13/20 12:05 91 H 100 09/13/20 12:00 97.5 F L 92 H 16 120/65 99 09/13/20 11:55 96 H 100 09/13/20 11:50 96 H 103/56 98 03/11/21 11:45 102 H 99 09/13/20 11:40 98 H 99 09/13/20 11:35 96 H 121/57 98 09/13/20 11:30 97 H 98 09/13/20 11:25 101 H 99 09/13/20 11:21 90 134/79 09/13/20 11:20 91 H 99 09/13/20 11:15 91 H 99 09/13/20 11:10 89 99 09/13/20 11:05 97 H 120/63 99 09/13/20 11:00 90 99 09/13/20 10:55 91 H 99 09/13/20 10:50 95 H 109/58 99 09/13/20 10:45 98 H 100 09/13/20 10:40 99 H 100 09/13/20 10:35 97 H 118/64 100 09/13/20 10:30 96 H 99 09/13/20 10:25 102 H 99 09/13/20 10:20 98 H 119/56 100 09/13/20 10:15 92 H 99 09/13/20 10:10 94 H 99 09/13/20 10:06 96 H 117/70 09/13/20 10:05 53 L 86 09/13/20 10:00 93 H 98 09/13/20 09:55 102 H 97 09/13/20 09:50 111 H 125/72 98 09/13/20 09:45 105 H 99 09/13/20 09:40 105 H 98 09/13/20 09:36 96 H 110/58 09/13/20 09:35 97 H 97 09/13/20 09:33 104 H 88 09/13/20 09:30 97 H 97 09/13/20 09:25 97 H 97 09/13/20 09:20 96 H 107/55 97 09/13/20 09:15 96 H 96 09/13/20 09:10 95 H 97 09/13/20 09:05 89 105/58 97 09/13/20 09:00 100 H 98 09/13/20 08:55 92 H 98 09/13/20 08:50 90 104/58 97 09/13/20 08:45 91 H 99 09/13/20 08:40 97 H 99 09/13/20 08:35 102 H 104/57 98 09/13/20 08:31 87 97/52 09/13/20 08:30 97 H 99 09/13/20 08:25 90 99 09/13/20 08:22 98 H 96/53 09/13/20 08:20 95 H 112/56 99 09/13/20 08:15 97 H 99 09/13/20 08:10 93 H 98 09/13/20 08:06 93 H 115/57 09/13/20 08:05 94 H 99 09/13/20 08:00 101 H 99 09/13/20 07:55 95 H 98 09/13/20 07:51 100 H 115/53 09/13/20 07:50 101 H 99 09/13/20 07:45 105 H 99 09/13/20 07:40 99 H 99 09/13/20 07:35 106 H 99 09/13/20 07:30 97.5 F L 97 H 16 112/56 99 09/13/20 07:25 86 98 Intake and Output 09/13/20 09/14/20 09/14/20 22:59 06:59 14:59 Intake Total 1559.400 Output Total 395 850 Balance 1164.400 -850 Intake: IV 1559.400 AMPICILLIN/NS 1 GM/50 ML 50 1 gm In 50 ml @ 100 mls/ hr IV Q4H [facility] Rx#: [id number] PITOCin/NS 30 UNIT/500ML 9.400 30,000 milliunits In 500 ml @ 2 MILLIUNITS/MIN 2 mls/hr IV [facility] Rx#:[id number] Output: Urine 395 850 Indwelling Catheter 45 850 Other: Total, Output Amount 45 300 Estimated Blood Loss 100 - Exam Abdomen: Present: normal appearance, soft Incision: Present: dressed - Labs Labs: Abnormal lab results 09/13/20 09/13/20 09/13/20 Range/Units 07:03 11:48 14:02 POC Glucose 171 H 195 H (70-105) mg/dL Magnesium 6.50 H (1.7-2.3) mg/dL 09/13/20 09/13/20 Range/Units 15:59 19:35 POC Glucose 226 H (70-105) mg/dL Magnesium 7.80 H (1.7-2.3) mg/dL
[2020-09-14] MEDS ORDERED: diphenhydrAMINE 25 MG CAP PO PRN (08:00)
[2020-09-14] MEDS ORDERED: hydrALAZINE 20 MG/1 ML INJ IV PRN (08:00)
[2020-09-14] MEDS: LACTATED RINGERS 1,000 ML IV SCH ×2 (09:22→19:00)
--- NOTE | 2020-09-14 09:38 | Post Anesthesia Evaluation ---
- Post Anesthesia Evaluation Patient Participated: Yes Airway Patent: Yes Stable Respiratory Function: Yes Nausea/Vomiting: No Temp > 96.8F: Yes Pain Manageable: Yes Adequeate Hydration: Yes Anesthesia Complications: No Block Receding Appropriately: Yes Patient on Ventilator: No
[2020-09-14] MEDS: NalbUPHINE 10 MG/1 ML INJ IV PRN ×4 (12:05→23:00)
[2020-09-14] MEDS: IBUPROFEN 800 MG TAB PO PRN (20:33)
[2020-09-14] MEDS: oxyCODONE /ACETAMINOPHEN 5-325MG TAB PO PRN (23:12)
[2020-09-15] MEDS: IBUPROFEN 800 MG TAB PO PRN ×2 (05:44→12:11)
[2020-09-15] MEDS: INSULIN LISPRO 100 UNIT/ML SUB-Q SCH ×4 (08:12→21:42)
[2020-09-15 08:42] LABS: Hematocrit 25.1 % (30.3-42.9); Hemoglobin 8.5 gm/dl (10.1-14.3)
--- NOTE | 2020-09-15 10:17 | Progress Note ---
Assessment and Plan A: POD2 s/p primary LTCS IDDM, on Insulin Preeclampsia with severe features, s/p mag sulfate Vital signs stable Acute anemia due to surgical blood loss P: Continue current care Discharge to home tomorrow Subjective - Subjective Date of service: 09/15/20 Principal diagnosis: s/p primary LTCS, pree with severe features Interval history: POD2 s/p primary LTCS Patient reports: appetite normal, voiding normally, pain well controlled, flatus, ambulating normally : in NICU (for blood glucose stabilization) Objective - Vital Signs Latest vital signs: Vital Signs Temp Pulse Resp BP BP Pulse Ox 09/15/20 09:47 162/83 09/15/20 08:10 98.4 F 98 H 18 162/83 99 09/15/20 05:44 20 09/15/20 05:42 98.1 F 88 18 136/84 99 09/14/20 23:54 98.3 F 18 134/79 99 09/14/20 23:00 94 H 99 09/14/20 22:55 96 H 97 09/14/20 22:50 87 100 09/14/20 22:45 94 H 98 09/14/20 22:40 104 H 98 09/14/20 22:35 98 H 98 09/14/20 22:32 93 H 155/84 09/14/20 22:30 92 H 99 09/14/20 22:25 97 H 98 09/14/20 22:20 86 99 09/14/20 22:15 86 98 09/14/20 22:10 89 98 09/14/20 22:05 86 140/85 99 09/14/20 22:00 86 140/85 100 09/14/20 21:55 86 99 09/14/20 21:50 84 99 09/14/20 21:45 82 99 09/14/20 21:40 87 99 09/14/20 21:35 89 99 09/14/20 21:30 84 99 09/14/20 21:25 84 99 09/14/20 21:20 84 99 09/14/20 21:18 85 139/72 09/14/20 21:15 82 99 09/14/20 21:10 82 99 09/14/20 21:05 88 97 09/14/20 21:00 83 99 03/12/21 20:55 79 99 09/14/20 20:50 79 99 09/14/20 20:45 79 98 09/14/20 20:40 83 99 09/14/20 20:35 88 99 09/14/20 20:30 92 H 98 09/14/20 20:28 75 125/64 09/14/20 20:25 84 98 09/14/20 20:20 85 100 09/14/20 20:15 83 99 09/14/20 20:10 86 100 09/14/20 20:05 96 H 100 09/14/20 20:00 98.4 F 75 18 125/64 98 09/14/20 19:55 94 H 99 09/14/20 19:50 95 H 98 09/14/20 19:45 83 97 09/14/20 19:40 96 H 98 09/14/20 19:35 87 98 09/14/20 19:30 87 98 09/14/20 19:25 83 99 09/14/20 19:20 97 H 99 09/14/20 19:15 98 H 98 09/14/20 19:10 104 H 100 09/14/20 19:05 103 H 98 09/14/20 19:01 88 142/80 09/14/20 19:00 94 H 98 09/14/20 18:55 90 148/87 97 09/14/20 18:54 87 160/92 09/14/20 18:50 88 98 09/14/20 18:45 99 H 99 09/14/20 18:42 112 H 94 09/14/20 18:40 106 H 99 09/14/20 18:35 99 H 99 09/14/20 18:30 93 H 98 09/14/20 18:25 108 H 99 09/14/20 18:20 101 H 98 09/14/20 18:15 100 H 99 09/14/20 18:10 99 H 97 09/14/20 18:05 102 H 98 09/14/20 18:00 100 H 79 L 09/14/20 17:55 79 96 09/14/20 17:50 80 97 09/14/20 17:45 82 92 09/14/20 17:44 80 123/73 86 09/14/20 17:40 83 99 09/14/20 17:35 77 98 09/14/20 17:30 82 96 0312/21 17:25 90 97 09/14/20 17:20 103 H 98 09/14/20 17:15 88 99 09/14/20 17:10 78 98 09/14/20 17:05 75 98 09/14/20 17:00 75 98 09/14/20 16:55 77 99 09/14/20 16:50 75 99 09/14/20 16:45 90 99 09/14/20 16:43 99 H 90 09/14/20 16:40 76 99 09/14/20 16:35 81 99 09/14/20 16:30 84 100 09/14/20 16:25 72 99 09/14/20 16:20 76 98 09/14/20 16:15 75 99 09/14/20 16:10 85 96 09/14/20 16:05 74 97 09/14/20 16:00 98.5 F 76 18 124/69 124/69 98 09/14/20 15:55 72 99 09/14/20 15:50 100 H 99 09/14/20 15:45 87 99 09/14/20 15:40 77 100 09/14/20 15:35 83 99 09/14/20 15:30 89 98 09/14/20 15:25 84 99 09/14/20 15:20 76 97 09/14/20 15:15 89 98 09/14/20 15:10 91 H 98 09/14/20 15:05 89 98 09/14/20 15:00 86 96 09/14/20 14:55 85 98 09/14/20 14:50 82 98 09/14/20 14:45 82 97 09/14/20 14:40 83 97 09/14/20 14:35 84 96 09/14/20 14:30 84 98 09/14/20 14:25 89 97 09/14/20 14:20 93 H 98 09/14/20 14:15 100 H 100 09/14/20 14:10 81 99 09/14/20 14:05 81 99 09/14/20 14:00 84 98 09/14/20 13:55 82 98 09/14/20 13:50 86 98 09/14/20 13:45 86 98 09/14/20 13:40 98 H 98 09/14/20 13:35 91 H 99 09/14/20 13:30 87 99 09/14/20 13:25 86 100 09/14/20 13:20 94 H 99 09/14/20 13:17 107 H 92 09/14/20 13:15 89 99 09/14/20 13:10 98 H 98 09/14/20 13:05 90 98 09/14/20 13:03 100 H 89 09/14/20 13:00 103 H 100 09/14/20 12:55 105 H 98 09/14/20 12:54 106 H 94 09/14/20 12:50 103 H 98 09/14/20 12:45 102 H 98 09/14/20 12:42 101 H 87 09/14/20 12:40 102 H 99 09/14/20 12:35 90 99 09/14/20 12:30 93 H 99 09/14/20 12:25 95 H 99 09/14/20 12:20 95 H 97 09/14/20 12:18 98.5 F 18 09/14/20 12:15 93 H 97 09/14/20 12:10 86 96 09/14/20 12:06 101 H 88 09/14/20 12:05 91 H 97 09/14/20 12:02 93 H 138/88 09/14/20 12:00 96 H 99 09/14/20 11:55 86 99 09/14/20 11:51 91 H 72 L 09/14/20 11:50 92 H 99 09/14/20 11:45 84 99 09/14/20 11:40 91 H 97 09/14/20 11:35 90 100 09/14/20 11:28 90 99 09/14/20 11:23 96 H 95 09/14/20 11:22 101 H 173/84 94 09/14/20 11:19 83 171/102 09/14/20 11:18 85 99 09/14/20 11:17 86 172/96 09/14/20 11:13 102 H 97 09/14/20 11:08 106 H 98 09/14/20 11:06 89 91 09/14/20 11:03 93 H 99 09/14/20 10:58 82 98 09/14/20 10:53 91 H 99 09/14/20 10:48 84 99 09/14/20 10:43 82 98 09/14/20 10:39 82 155/80 09/14/20 10:38 85 96 09/14/20 10:33 91 H 97 09/14/20 10:30 104 H 93 09/14/20 10:28 101 H 98 09/14/20 10:23 79 99 09/14/20 10:18 79 99 Intake and Output 09/14/20 09/15/20 09/15/20 23:59 07:59 15:59 Intake Total 1000 240 240 Output Total 3450 Balance -2450 240 240 Intake: IV 1000 Lactated Ringers 1,000 ml 1000 @ 125 mls/hr IV DIRECT BENJAMÍN Rx#:[id number] Oral 240 240 Output: Urine 3450 Indwelling Catheter 3450 Other: Total, Intake Amount 240 240 Total, Output Amount 900 # Bowel Movements 1 - Exam Uterus: Present: firm, fundal height below umbilicus. Absent: bogginess, tenderness Extremities: Present: normal Incision: Present: dressed - Labs Labs: Abnormal lab results 09/14/20 09/14/20 09/14/20 Range/Units 06:35 11:43 15:24 Hgb (10.1-14.3) gm/dl Hct (30.3-42.9) % POC Glucose 232 H 195 H (70-105) mg/dL Magnesium 5.30 H (1.7-2.3) mg/dL 09/14/20 09/14/20 09/14/20 Range/Units 16:45 20:00 22:03 Hgb (10.1-14.3) gm/dl Hct (30.3-42.9) % POC Glucose 175 H 186 H (70-105) mg/dL Magnesium 4.60 H (1.7-2.3) mg/dL 09/15/20 Range/Units 06:55 Hgb 8.5 L (10.1-14.3) gm/dl Hct 25.1 L (30.3-42.9) % POC Glucose (70-105) mg/dL Magnesium (1.7-2.3) mg/dL
[2020-09-15] MEDS: oxyCODONE /ACETAMINOPHEN 5-325MG TAB PO PRN (20:45)
[2020-09-16] MEDS: INSULIN LISPRO 100 UNIT/ML SUB-Q SCH ×2 (08:21→12:22)
[2020-09-16] MEDS: IBUPROFEN 800 MG TAB PO PRN (08:29)
--- NOTE | 2020-09-16 11:29 | Progress Note ---
Assessment and Plan A: POD3 s/p primary LTCS IDDM, on Insulin Preeclampsia with severe features, s/p mag sulfate BP labile, controlled with Labetalol Acute anemia due to surgical blood loss P: Discharge to home today with close clinical follow up Subjective - Subjective Date of service: 09/16/20 Principal diagnosis: s/p primary LTCS, pree with severe features Interval history: POD3 s/p primary LTCS Patient reports: appetite normal, voiding normally, pain well controlled, flatus, ambulating normally [place]: in NICU Objective - Vital Signs Latest vital signs: Vital Signs Temp Pulse Resp BP BP BP Pulse Ox 09/16/20 10:00 79 153/79 09/16/20 08:00 98.4 F 83 15 170/94 98 09/16/20 00:36 98.0 F 91 H 18 131/69 98 09/15/20 20:40 98.7 F 94 H 18 149/87 97 09/15/20 19:16 98.4 F 09/15/20 19:14 88 146/73 99 Intake and Output 09/15/20 09/16/20 09/16/20 22:59 07:59 15:59 Intake Total Balance Intake: Oral Intake, Free Water Other: Total, Intake Amount # Voids Void # Bowel Movements - Exam Abdomen: Present: soft, tenderness (surgical). Absent: distention, guarding Uterus: Present: firm, fundal height below umbilicus. Absent: bogginess, tenderness Extremities: Present: normal Incision: Present: normal, dry, intact - Labs Labs: Abnormal lab results 09/15/20 09/15/20 09/15/20 Range/Units 07:58 11:50 21:28 POC Glucose 189 H 146 H 232 H (70-105) mg/dL 09/16/20 Range/Units 07:45 POC Glucose 162 H (70-105) mg/dL
--- NOTE | 2020-09-16 11:32 | Discharge Summary ---
Providers - Providers Date of Admission: 09/12/20 11:52 Date of discharge: 09/16/20 Attending physician: RUBA RIVAS MD 09/12/20 12:49 Consult to Physician [CONS] Routine Comment: Consulting Provider: LOY SAPP Physician Instructions: Reason For Exam: delivery Primary care physician: BEATA LAKHANI Hospitalization Reason for admission: IUP - (35weeks), induction of labor (for preeclampsia with severe features) Delivery: (for NRFHT) Procedure: primary low transverse Incision: normal, dry, intact Other procedures: none complications: none Discharge diagnosis: delivery baby: male Hospital course: Pt presented for induction of labor secondary to preeclampsia with severe feat ures. She underwent a primary section for non-reassuring FHT. She received magnesium sulfate infusion during induction and 24 hours post-op. BP was controlled with PO Labetalol 400mg BID. She was found to have anemia due to blood loss and poorly controlled IDDM, treated with sliding scale Insulin. She will follow up in the office in 10 days. Condition at discharge: Good Disposition: DC-01 TO HOME OR SELFCARE Plan - Discharge Medications Prescriptions: Ferrous Sulfate [Feosol 325 MG tab] 325 mg PO BID #60 tablet labetaloL [Labetalol 200mg TAB] 400 mg PO BID #60 tablet Ibuprofen [Motrin] 600 mg PO Q6H PRN #60 tablet PRN Reason: Pain - Provider Discharge Summary Activity: routine, no sex for 6 weeks, no heavy lifting 4 weeks, no strenuous exercise Diet: routine Instructions: routine Additional instructions: [] Smoking cessation referral if applicable(refer to patient education folder for contact #) [] Refer to [facility] Booklet Call your doctor immediately for: * Fever > 100.5 * Heavy vaginal bleeding ( >1 pad per hour) * Severe persistent headache * Shortness of breath * Reddened, hot, painful area to leg or breast * Drainage or odor from incision. * Keep incision clean and dry at all times and follow doctor's instructions regarding bathing/showering - Follow up plan Follow up: BEATA LAKHANI MD [Primary Care Provider] - 10 Days (Please call office to schedule appointment.)
[2020-09-16 12:21] VITALS: BP 138/87
--- NOTE | 2020-09-16 13:03 | Event Note ---
Date: 09/16/20 Received a call from JACK Collins reporting that patient's EPDS is elevated. Pt denies suicidal ideation and states she is sad to be leaving her baby in the NICU. H/o bipolar disorder. Psych unable to assess patient until tomorrow. Pt will follow up in the office tomorrow or the next day.
== END 2020-09-16 12:40 | disposition home or self-care (01) | DRG 765 ==
LOC: TRG 11:34 → LD 11:36 → TRG 11:44 → LD 11:52 → OB 09-14 23:39
PROVIDERS: ADMIT Obstetrics & Gynecology; ATTEND Obstetrics & Gynecology
PROC: 10D00Z1 Extraction of Products of Conception, Low, Open Approach (ICD-10-PCS; principal; 2020-09-13)
PROC: 10H07YZ Insertion of Other Device into Products of Conception, Via Natural or Artificial Opening (ICD-10-PCS; 2020-09-13)
PROC: 3E033VJ Introduction of Other Hormone into Peripheral Vein, Percutaneous Approach (ICD-10-PCS; 2020-09-13)
DX: O14.14 Severe pre-eclampsia complicating childbirth (principal); D62 Acute posthemorrhagic anemia; O24.12 Pre-existing type 2 diabetes mellitus, in childbirth; O75.3 Other infection during labor; O60.14X0 Preterm labor third trimester with preterm delivery third trimester, not applicable or unspecified; O99.214 Obesity complicating childbirth; O99.824 Streptococcus B carrier state complicating childbirth; O99.344 Other mental disorders complicating childbirth; F31.9 Bipolar disorder, unspecified; O76 Abnormality in fetal heart rate and rhythm complicating labor and delivery; O90.81 Anemia of the puerperium; Z3A.35 35 weeks gestation of pregnancy; Z37.0 Single live birth; Z82.49 Family history of ischemic heart disease and other diseases of the circulatory system; Z83.3 Family history of diabetes mellitus; Z79.4 Long term (current) use of insulin
CPT/HCPCS: 36415; 59200; 80053; 81001; 82565; 82962; 83036; 83615; 83735; 84450; 84460; 84550; 85014; 85018; 85027; 86592; 86850; 86870; 86900; 86901; 87086; G0378; J0290; J0360; J0595; J0690; J0702; J1200; J1815; J2274; J2300; J2405; J2590; J2765; J3475; J7120; U0003

== ENCOUNTER 2021-08-20 15:03 | Outpatient (CLI) | payer MEDICAID ==
--- NOTE | 2021-08-20 16:24 | XRay Report ---
CHEST 2 VIEWS INDICATION / CLINICAL INFORMATION: R06.02. Shortness of breath COMPARISON: 01/13/2020 FINDINGS: SUPPORT DEVICES: None. HEART / MEDIASTINUM: No significant abnormality. LUNGS / PLEURA: No significant pulmonary or pleural abnormality. No pneumothorax. ADDITIONAL FINDINGS: No significant additional findings. IMPRESSION: 1. No acute findings. No interval change. Signer Name: Blanca Fernandez MD Signed: 08/20/2021 4:20 PM Workstation Name: [email or web address]
== END 2021-08-20 15:04 | disposition home or self-care (01) ==
LOC: XRAY 15:03
PROVIDERS: ATTEND Internal Medicine
DX: R06.02 Shortness of breath (principal)
CPT/HCPCS: 71046

== ENCOUNTER 2021-10-02 02:34 | Emergency (ER) | payer MEDICAID ==
[2021-10-02 02:57] VITALS: BP 133/96
[2021-10-02 03:34] LABS: Bacteria,Urine 4+ /HPF (Negative); Bilirubin,Urine NEG (Negative); Blood,Urine NEG (Negative); Color,Urine Yellow (Yellow); Mucus,Urine FEW /HPF; Urobilinogen,Urine < 2.0 mg/dL (<2.0)
[2021-10-02 03:35] LABS: WBC,Urine > 182.0 /HPF (0.0-6.0)
[2021-10-02 04:59] LABS: Basophils % (Auto) 0.5 % (0.0-1.8); Eosinophils # (Auto) 0.1 K/mm3 (0.0-0.4); Eosinophils % (Auto) 0.8 % (0.0-4.3); Hematocrit 40.2 % (30.3-42.9); Hemoglobin 12.9 gm/dl (10.1-14.3); Lymphocytes # (Auto) 2.2 K/mm3 (1.2-5.4); Mean Corpuscular HGB Conc 32 % (30-34); Mean Corpuscular Volume 87 fl (79-97); Monocytes # (Auto) 0.5 K/mm3 (0.0-0.8); Monocytes % (Auto) 5.5 % (0.0-7.3); Platelet Count 222 K/mm3 (140-440); Red Cell Distribution Width 12.9 % (13.2-15.2)
[2021-10-02 05:24] LABS: Alanine Aminotransferase 19 units/L (7-56); Albumin 3.9 g/dL (3.9-5); Blood Urea Nitrogen 8 mg/dL (7-17); Hemolysis Index 35
[2021-10-02 05:26] LABS: BUN/Creatinine Ratio 13
[2021-10-02] MEDS ORDERED: levoFLOXacin 500 MG TAB PO STA (06:05)
[2021-10-02] MEDS ORDERED: HYDROcodone/ACETAMINOPHEN 5-325 MG TAB PO STA (06:10)
--- NOTE | 2021-10-02 06:16 | Emergency Department Report ---
ED Female HPI - General Chief complaint: Abdominal Pain Stated complaint: ABD PAIN Time Seen by Provider: 10/02/21 06:09 Source: patient Mode of arrival: Ambulatory Limitations: No Limitations - History of Present Illness MD Complaint: dysuria -: Gradual Location: suprapubic Radiation: non-radiating Severity: mild Quality: burning Consistency: constant Improves with: none, urination Are you Now?: No Associated Symptoms: abdominal pain, dysuria. denies: nausea/vomiting, rash, shortness of breath, syncope, weakness - Related Data Previous Rx's Medication Instructions Recorded Last Taken Type cephALEXin [Keflex] 500 mg PO Q6HR #40 capsule 01/13/20 09/03/20 10:00 Rx Ferrous Sulfate [Feosol 325 MG tab] 325 mg PO BID #60 tablet 09/15/20 Unknown Rx Ibuprofen [Motrin] 600 mg PO Q6H PRN #60 tablet 09/15/20 Unknown Rx labetaloL [Labetalol 200mg TAB] 400 mg PO BID #60 tablet 09/15/20 Unknown Rx Nitrofurantoin Adair/M-Cryst 100 mg PO Q12HR #20 capsule 10/02/21 Unknown Rx [Macrobid CAP] Phenazopyridine [Pyridium] 200 mg PO TID #9 tab 10/02/21 Unknown Rx Allergies Allergy/AdvReac Type Severity Reaction Status Date / Time No Known Allergies Allergy Unverified 01/13/20 10:24 ED Review of Systems ROS: Stated complaint: ABD PAIN Other details as noted in HPI Comment: All other systems reviewed and negative ED Past Medical Hx - Past Medical History Hx Hypertension: Yes Hx Diabetes: Yes (insulin dependent) Hx Deep Vein Thrombosis: No Hx Renal Disease: No Hx Sickle Cell Disease: No Hx Seizures: No Hx Asthma: No Hx HIV: No - Surgical History Additional Surgical History: Left knee - Social History Smoking Status: Never Smoker - Medications Home Medications: Home Medications Medication Instructions Recorded Confirmed Last Taken Type cephALEXin [Keflex] 500 mg PO Q6HR #40 capsule 01/13/20 09/12/20 09/03/20 10:00 Rx Ferrous Sulfate [Feosol 325 MG tab] 325 mg PO BID #60 tablet 09/15/20 Unknown Rx Ibuprofen [Motrin] 600 mg PO Q6H PRN #60 tablet 09/15/20 Unknown Rx labetaloL [Labetalol 200mg TAB] 400 mg PO BID #60 tablet 09/15/20 Unknown Rx Nitrofurantoin Adair/M-Cryst 100 mg PO Q12HR #20 capsule 10/02/21 Unknown Rx [Macrobid CAP] Phenazopyridine [Pyridium] 200 mg PO TID #9 tab 10/02/21 Unknown Rx ED Physical Exam - General Limitations: No Limitations General appearance: alert, in no apparent distress - Head Head exam: Present: atraumatic, normocephalic - Eye Eye exam: Present: normal appearance, PERRL, EOMI Pupils: Present: normal accommodation - ENT ENT exam: Present: normal exam, mucous membranes moist - Neck Neck exam: Present: normal inspection, full ROM - Respiratory Respiratory exam: Present: normal lung sounds bilaterally. Absent: respiratory distress, wheezes, rales, chest wall tenderness, accessory muscle use - Cardiovascular Cardiovascular Exam: Present: regular rate, normal rhythm. Absent: systolic murmur, diastolic murmur, rubs, gallop - GI/Abdominal GI/Abdominal exam: Present: soft, tenderness (Suprapubic area with palpation. No CVA tenderness noted. No tenderness to the epigastric or right upper quadrant with palpation. Abdomen soft. No Rovsing, no Kirkpatrick Flores, no Ray sign), normal bowel sounds - Extremities Exam Extremities exam: Present: normal inspection - Back Exam Back exam: Present: normal inspection. Absent: CVA tenderness (R), CVA tenderness (L) - Neurological Exam Neurological exam: Present: alert, oriented X3 - Psychiatric Psychiatric exam: Present: normal affect, normal mood - Skin Skin exam: Present: warm, dry, intact, normal color. Absent: rash ED Course Vital Signs 10/02/21 02:53 Temperature 98.3 F Pulse Rate 102 H Respiratory 18 Rate Blood Pressure 133/96 O2 Sat by Pulse 97 Oximetry ED Medical Decision Making - Lab Data Result diagrams: 10/02/21 03:10/02/21 03: Lab Results 10/02/21 10/02/21 10/02/21 Range/Units 03: 03:22 Unknown WBC 9.3 (4.5-11.0) K/mm3 RBC 4.60 (3.65-5.03) M/mm3 Hgb 12.9 (10.1-14.3) gm/dl Hct 40.2 (30.3-42.9) % MCV 87 (79-97) fl MCH 28 (28-32) pg MCHC 32 (30-34) % RDW 12.9 L (13.2-15.2) % Plt Count 222 (140-440) K/mm3 Lymph % (Auto) 24.0 (13.4-35.0) % [place] % (Auto) 5.5 (0.0-7.3) % Eos % (Auto) 0.8 (0.0-4.3) % Baso % (Auto) 0.5 (0.0-1.8) % Lymph # (Auto) 2.2 (1.2-5.4) K/mm3 [place] # (Auto) 0.5 (0.0-0.8) K/mm3 Eos # (Auto) 0.1 (0.0-0.4) K/mm3 Baso # (Auto) 0.0 (0.0-0.1) K/mm3 Seg Neutrophils % 69.2 (40.0-70.0) % Seg Neutrophils # 6.4 (1.8-7.7) K/mm3 Sodium 134 L (137-145) mmol/L Potassium 4.0 (3.6-5.0) mmol/L Chloride 97.4 L (98-107) mmol/L Carbon Dioxide 23 (22-30) mmol/L Anion Gap 18 mmol/L BUN 8 (7-17) mg/dL Creatinine 0.6 (0.6-1.2) mg/dL Estimated GFR > 60 ml/min BUN/Creatinine Ratio 13 % Glucose 321 H (65-100) mg/dL Calcium 9.0 (8.4-10.2) mg/dL Total Bilirubin 0.60 (0.1-1.2) mg/dL AST 17 (5-40) units/L ALT 19 (7-56) units/L Alkaline Phosphatase 93 (35-129) units/L Total Protein 7.2 (6.3-8.2) g/dL Albumin 3.9 (3.9-5) g/dL Albumin/Globulin Ratio 1.2 % Urine Color Yellow (Yellow) Urine Turbidity Cloudy (Clear) Urine pH 6.0 (5.0-7.0) Ur Specific [place] 1.030 (1.003-1.030) Urine Protein 30 mg/dl (Negative) mg/dL Urine Glucose (UA) >=500 (Negative) mg/dL Urine Ketones 80 (Negative) mg/dL Urine Blood Neg (Negative) Urine Nitrite Pos (Negative) Urine Bilirubin Neg (Negative) Urine Urobilinogen < 2.0 (<2.0) mg/dL Ur Leukocyte Esterase Lg (Negative) Urine WBC (Auto) > 182.0 H (0.0-6.0) /HPF Urine RBC (Auto) 19.0 (0.0-6.0) /HPF U Epithel Cells (Auto) 15.0 H (0-13.0) /HPF Urine Bacteria (Auto) 4+ (Negative) /HPF Urine Mucus Few /HPF Urine Yeast (Budding) 2+ /HPF - Medical Decision Making This patient presents to the emergency department with symptoms consistent with acute uncomplicated cystitis. No systemic symptoms. Not septic. She is well- appearing. Low suspicion for acute pyelonephritis given the lack of fever, CVA tenderness, or systemic features. Low suspicion for for kidney stone or infected stone. Not in age range for and her history and and presentation are complicated. No no indications for labs or imaging at this time. Critical care attestation.: If time is entered above; I have spent that time in minutes in the direct care of this critically ill patient, excluding procedure time. ED Disposition Clinical Impression: UTI (urinary tract infection) Disposition: 01 HOME / SELF CARE / HOMELESS Is pt being admited?: No Does the pt Need Aspirin: No Condition: Stable Instructions: Abdominal Pain (ED), Urinary Tract Infection, Adult Prescriptions: Nitrofurantoin [place]/M-Cryst [Macrobid CAP] 100 mg PO Q12HR #20 capsule Phenazopyridine [Pyridium] 200 mg PO TID #9 tab Referrals: PRIMARY CAREMD [Primary Care Provider] - 3-5 Days LORENE RECINOS MD [Staff Physician] - 3-5 Days
== END 2021-10-02 06:20 | disposition home or self-care (01) ==
LOC: ED 02:34
DX: N39.0 Urinary tract infection, site not specified (principal); I10 Essential (primary) hypertension; E11.8 Type 2 diabetes mellitus with unspecified complications
CPT/HCPCS: 36415; 80053; 81001; 85025; 99283

== ENCOUNTER 2022-02-24 18:54 | Emergency (ER) | payer MEDICAID | END 2022-02-25 15:03 | disposition left against medical advice (07) | LOC: ED 18:54 | DX: O24.419 Gestational diabetes mellitus in pregnancy, unspecified control (principal); Z53.21 Procedure and treatment not carried out due to patient leaving prior to being seen by health care provider; Z3A.00 Weeks of gestation of pregnancy not specified ==